=== PATIENT | female | born 1990 | race Caucasian/White ===

== ENCOUNTER 2019-10-21 13:47 | Emergency (ER) | payer MEDICAID ==
[~2019-10-21] VITALS: Ht 160 cm; Wt 70.0 kg
[~2019-10-21 13:47] MED LIST: DOCU-131 PO; GABA300C10 PO; METH750T87 PO; OXYC-302 PO
[2019-10-21] MEDS ORDERED: LORazepam 2 MG/ML, 1ML IVPush ONE (14:30)
[2019-10-21] MEDS ORDERED: HYDROmorphone 1 MG/ML, 1ML INJ IV ONE (14:30)
[2019-10-21] MEDS ORDERED: ONDANSETRON 2MG/ML, 2ML IVPush ONE (14:30)
[2019-10-21] MEDS ORDERED: ONDANSETRON 2MG/ML, 2ML ONE (14:37)
[2019-10-21] MEDS ORDERED: HYDROmorphone 1 MG/ML, 1ML INJ ONE (14:37)
[2019-10-21] MEDS ORDERED: LORazepam 2 MG/ML, 1ML ONE (14:38)
[2019-10-21 14:43] LABS: BASOPHILS # (AUTO) 0.04 x10^3/uL (0-0.1); BASOPHILS % (AUTO) 1 % (0-1); EOSINOPHILS # (AUTO) 0.16 x10^3/uL (0-0.4); EOSINOPHILS % (AUTO) 2 % (1-7); LYMPHOCYTES # (AUTO) 2.28 x10^3/uL (1-3.4); LYMPHOCYTES % (AUTO) 29 % (22-44); MD NO; MEAN CORPUSCULAR HEMOGLOBIN 29.1 pg (27.0-34.8); MEAN CORPUSCULAR VOLUME 88.4 fL (80-100); MEAN PLATELET VOLUME 9.1 fL (7.4-10.4); MONOCYTES # (AUTO) 0.51 x10^3/uL (0.2-0.8); MONOCYTES % (AUTO) 7 % (2-9); NEUTROPHILS # (AUTO) 4.82 x10^3/uL (1.8-6.8); NEUTROPHILS % (AUTO) 62 % (42-75); PLATELET COUNT 266 x10^3/uL (130-400); RED BLOOD COUNT 4.62 x10^6/uL (3.82-5.3); RED CELL DISTRIBUTION WIDTH 12.8 % (9.6-15.2)
--- NOTE | 2019-10-21 14:45 | NUR ---
PT AMBULATED TO BATHROOM WITHOUT ASSISTANCE, FAVORING RIGHT SIDE.
[2019-10-21 14:51] LABS: ANION GAP 7 mmol/L (5-15); CALCIUM 9.3 mg/dL (8.5-10.1); CHLORIDE 113 mmol/L (98-107)
--- NOTE | 2019-10-21 15:07 | NUR ---
MEDICATED NOTED ON MAR AND OFF FLOOR TO MRI
--- NOTE | 2019-10-21 15:18 | NUR ---
ANIMAL SERVICES PROVIDED PT'S HOME ADDRESS OF [address] [facility]
[2019-10-21] MEDS ORDERED: GADOTERATE 7.5 MMOL/15 ML SYR ONE (15:27)
--- NOTE | 2019-10-21 15:50 | NUR ---
AFTER MRI COMPLETED TO ULTRASOUND
--- NOTE | 2019-10-21 17:00 | NUR ---
PT STATES SINCE ARRIVAL SHE HAS HAD TO CHANGE HER PAD TWICE.
[2019-10-21 17:11] VITALS: BP 105/62
--- NOTE | 2019-10-21 17:39 | NUR ---
PT ON PHONE WITH . PROVIDED SNACKS. TO BE DISCHARGED.
== END 2019-10-21 18:04 | disposition home or self-care (01) ==
LOC: ED 17:45
DX: S39.012A Strain of muscle, fascia and tendon of lower back, initial encounter (principal); S40.011A Contusion of right shoulder, initial encounter; I10 Essential (primary) hypertension; K21.9 Gastro-esophageal reflux disease without esophagitis; N92.1 Excessive and frequent menstruation with irregular cycle; Z88.6 Allergy status to analgesic agent; X58.XXXA Exposure to other specified factors, initial encounter; Y93.89 Activity, other specified; Y92.89 Other specified places as the place of occurrence of the external cause; Y99.8 Other external cause status
CPT/HCPCS: 36415; 72158; 76830; 80048; 84703; 85025; 96374; 96375; 99284; A9575; J2060; J2405